=== PATIENT | female | born 1980 | race Caucasian/White ===

== ENCOUNTER 2016-06-10 15:02 | Emergency (ER) | payer BC ==
--- NOTE | 2016-06-10 15:46 | ED CLINICAL REPORT ---
Clinical Report - Physicians/Mid Levels [facility] [address] [place] [address] 06/10/2016 15:04 Patient: JUAN M PORTILLO Time Seen: 1510 Jun 10 2016. Arrived- By private vehicle. Historian- patient. HISTORY OF PRESENT ILLNESS Chief Complaint: Injury to the left index finger. The injury happened just prior to arrival. The patient sustained a laceration. Patient is experiencing mild pain. Patient denies injury to the neck. ( Patient here in the ER with right hand dominance, prior to arrival, sustaining injury to her left index finger, from a laceration.). REVIEW OF SYSTEMS The patient sustained a laceration. No tingling or numbness. All systems otherwise negative, except as recorded above. PAST HISTORY No history of heart disease. The patient's dominant hand is the right. Tetanus immunization status is unknown. SOCIAL HISTORY Never smoker. No alcohol use or drug use. ADDITIONAL NOTES The nursing notes have been reviewed. PHYSICAL EXAM Vital Signs: 06/10/2016 15:09 BP: 118/78. HR: 83. RR: 18. O2 saturation: 100%. Temp: 98.1 F. Pain level now: 6/10. Appearance: Alert. No acute distress. Head: Head atraumatic. Neck: Normal inspection. Neck supple. CVS: Normal heart rate and rhythm. Heart sounds normal. Respiratory: No respiratory distress. Breath sounds normal. Skin: Skin warm. Extremities: Tip of left index finger: laceration; partial thickness tip amputation present. SEE LACERATION PROCEDURE NOTE #1. No exposed bone or loss of the nail bed on the left index finger. (mild bleeding from). No wrist injury. Extremities otherwise negative. Neuro, Vascular and Tendons: Vascular status intact. Motor intact. LABS, X-RAYS, AND EKG Lt UE Digits X-ray: (IMPRESSION: 1. Normal osseous structures second digit left hand. ___ Electronically Final signed by:William Centeno MD 06/10/2016 3:53:36 PM). PROGRESS AND PROCEDURES Digital Nerve Block - Finger: Time: 1600. Time-out completed immediately before the procedure. Digital nerve block performed on the left index finger. Web space and dorsal approach utilized. Landmarks identified. Skin prepped. Total volume of 4 mL 0.5% Marcaine infiltrated via two punctures using a 30-gauge needle. No complications encountered. Excellent anesthesia achieved. Course of Care: Coagulation achieved with pressure dressing, no signs of open fracture. No nailbed involvement. Partial distal nail avulsion as part of the skin avulsion. No signs of foreign body or infectious process. Patient is stable. Physical exam findings are improved. Symptoms better. Patient/family counseled. Disposition: Discharged. Condition: good. CLINICAL IMPRESSION Single deep skin avulsion.Treatment not delayed. No infection present or foreign body present. INSTRUCTIONS (leave dressing in place for 24 hour then remove gently and apply new avoid water for 48 hours). Warnings: TETANUS: You were given a tetanus shot during your visit. Make a note for future reference. OTC Medications: Take OTC medications according to label instructions. Available over the counter. Acetaminophen (available over the counter): take according to label instructions. Motrin (available over the counter): take according to label instructions. Follow-up: Follow up with your doctor in three days. (Electronically signed by Sulma Nayak P.A.-C 06/10/2016 17:14)
--- NOTE | 2016-06-10 15:46 | ED NURSING NOTES ---
Clinical Report - Nurses [facility] [address] [place] [address] 06/10/2016 15:04 Patient: JUAN M PORTILLO TRIAGE Triage time 15:09. Acuity: LEVEL 4. Chief Complaint: INJURY TO LEFT HAND. INJURY TO THE LEFT INDEX FINGER. Alert. --15:13 Thais Rolle R.N. 15:09 06/10/16. BP: 118/78. HR: 83. RR: 18. O2 saturation: 100%. Temp: 98.1 F. Pain level now: 10/29. --15:13 Thais Rolle R.N. Weight: 61.2 kg stated. Height/Length: 64 inches Per Patient. BMI: 23.2. --15:09 Thais Rolle R.N. Medications None. --17:01 Thais Rolle R.N. Allergies No Known Drug Allergy. --17:01 Thais Rolle R.N. History Arrived by private vehicle. Historian: patient. Primary physician (Marcus). The patient sustained a laceration from a knife. ( while chopping to make saravanan and potato soup). PAST MEDICAL HX: Tetanus status: unknown. Denies current . ( hypotension). SOCIAL HX: Never smoker. No alcohol use or drug use. FALL RISK ASSESSMENT: Fall risk assessment completed. No fall risk identified. --15:13 Thais Rolle R.N. Interventions ID band on patient. To room. --15:13 Thais Rolle R.N. PHYSICAL ASSESSMENT 15:13 06/10/16. EXTREMITIES: Tip of left index finger: tip amputation. --15:13 Thais Rolle R.N. SKIN: Bleeding is present. --15:14 Thais Rolle R.N. NURSING PROGRESS NOTES 15:14 06/10/16. Patient identifiers checked. Call light placed in reach. Bed placed in lowest position. Patient ready for evaluation- chart flagged. --15:14 Thais Rolle R.N. 15:23 06/10/2016 TDAP IM 0.5 mL given. (Lot#: [id number], expiration date: 02/23/2018, Marine Firefighter: [employer]ofi pasteur). Given in the right deltoid. Confirmed 5 rights. Vaccine information statement provided to the patient. --15:23 Thais Rolle R.N. Applied sterile bulky and pressure dressing consisting of 4x4 gauze. Secured with tube gauze. --16:45 Hermilo Quinones 16:50. ( Pt had pressure dressing applied with gelfoam x 30 minutes, then unwrapped, then redressed without removing gelfoam, per PA request, to see if bleeding stopped, was oozing very slowly but had mostly stopped. No leak through after new dressing applied. Pt asked for gauze to take home for dressing changes, brewing technician gave her a ten pack of 4x4's, and 2 bacitracin ointment packets, prior to discharge.). --17:59 Thais Rolle R.N. DISPOSITION / DISCHARGE Departure time: 1656. Condition at departure: improved. No learning barriers present. Discharge instructions provided and reviewed with the patient. Reviewed wound care instructions. Patient verbalized understanding. Written instructions provided. The patient was discharged home. She left the Emergency Department ambulatory and via private vehicle. --18:00 Thais Rolle R.N. 16:57 06/10/16. BP: 124/76. HR: 74. RR: 18. O2 saturation: 100%. Pain level now: 0/10. --18:00 Thais Rolle R.N. Locked/Released at 06/10/2016 18:45 by Thais Rolle R.N.
--- NOTE | 2016-06-10 15:46 | ED NURSING NOTES ---
Clinical Report - Nurses [facility] [address] [place] [address] 06/10/2016 15:04 Patient: JUAN M PORTILLO TRIAGE Triage time 15:09. Acuity: LEVEL 4. Chief Complaint: INJURY TO LEFT HAND. INJURY TO THE LEFT INDEX FINGER. Alert. --15:13 Thais Rolle R.N. 15:09 06/10/16. BP: 118/78. HR: 83. RR: 18. O2 saturation: 100%. Temp: 98.1 F. Pain level now: 10/29. --15:13 Thais Rolle R.N. Weight: 61.2 kg stated. Height/Length: 64 inches Per Patient. BMI: 23.2. --15:09 Thais Rolle R.N. Medications None. --17:01 Thais Rolle R.N. Allergies No Known Drug Allergy. --17:01 Thais Rolle R.N. History Arrived by private vehicle. Historian: patient. Primary physician (Marcus). The patient sustained a laceration from a knife. ( while chopping to make saravanan and potato soup). PAST MEDICAL HX: Tetanus status: unknown. Denies current . ( hypotension). SOCIAL HX: Never smoker. No alcohol use or drug use. FALL RISK ASSESSMENT: Fall risk assessment completed. No fall risk identified. --15:13 Thais Rolle R.N. Interventions ID band on patient. To room. --15:13 Thais Rolle R.N. PHYSICAL ASSESSMENT 15:13 06/10/16. EXTREMITIES: Tip of left index finger: tip amputation. --15:13 Thais Rolle R.N. SKIN: Bleeding is present. --15:14 Thais Rolle R.N. NURSING PROGRESS NOTES 15:14 06/10/16. Patient identifiers checked. Call light placed in reach. Bed placed in lowest position. Patient ready for evaluation- chart flagged. --15:14 Thais Rolle R.N. 15:23 06/10/2016 TDAP IM 0.5 mL given. (Lot#: [id number], expiration date: 02/23/2018, Team Leader Surgery: sanofi pasteur). Given in the right deltoid. Confirmed 5 rights. Vaccine information statement provided to the patient. --15:23 Thais Rolle R.N. Applied sterile bulky and pressure dressing consisting of 4x4 gauze. Secured with tube gauze. --16:45 Hermilo Quinones 16:50. ( Pt had pressure dressing applied with gelfoam x 30 minutes, then unwrapped, then redressed without removing gelfoam, per PA request, to see if bleeding stopped, was oozing very slowly but had mostly stopped. No leak through after new dressing applied. Pt asked for gauze to take home for dressing changes, medical office technologist gave her a ten pack of 4x4's, and 2 bacitracin ointment packets, prior to discharge.). --17:59 Thais Rolle R.N. DISPOSITION / DISCHARGE Departure time: 1656. Condition at departure: improved. No learning barriers present. Discharge instructions provided and reviewed with the patient. Reviewed wound care instructions. Patient verbalized understanding. Written instructions provided. The patient was discharged home. She left the Emergency Department ambulatory and via private vehicle. --18:00 Thais Rolle R.N. 16:57 06/10/16. BP: 124/76. HR: 74. RR: 18. O2 saturation: 100%. Pain level now: 0/10. --18:00 Thais Rolle R.N. Locked/Released at 06/10/2016 18:45 by Thais Rolle R.N.
--- NOTE | 2016-06-10 15:47 | ED ORDER SUMMARY ---
..... Patient: JUAN M PORTILLO OrderSheet [facility] VisitID: [id number] [address] [place] [address] 35y, F Registration Date/Time: 06/10/2016 ORDER SHEET Weight: 61.2 kg (stated) Allergies: No Known Drug Allergy GENERAL ORDERS: Finger Left (2) Urgent (15:25 06/10/2016 Pricilla Flor) (Ack 15:30 JENNIFERarbayron) (18:07 LSullivan R.N.) MEDICATION ORDERS: Tdap IM 0.5 mL (NOW, per protocol) (15:16 06/10/2016 Pricilla Flor) (15:23 LSullivan R.N.) IV FLUIDS: ORDER SHEET NOTES: [Electronically signed by Sulma Nayak P.A.-C (17:14 06/10/2016)] [Electronically signed by Thais Rolle R.N. (18:45 06/10/2016)] [Electronically locked/signed by Thais Rolle R.N. (18:45 06/10/2016)]
--- NOTE | 2016-06-10 15:47 | ED ORDER SUMMARY ---
..... Patient: JUAN M PORTILLO OrderSheet [facility] VisitID: [id number] [address] [place] [address] 35y, F Registration Date/Time: 06/10/2016 ORDER SHEET Weight: 61.2 kg (stated) Allergies: No Known Drug Allergy GENERAL ORDERS: Finger Left (2) Urgent (15:25 06/10/2016 Pricilla Flor) (Ack 15:30 JENNIFERarbayron) (18:07 LSullivan R.N.) MEDICATION ORDERS: Tdap IM 0.5 mL (NOW, per protocol) (15:16 06/10/2016 Pricilla Flor) (15:23 LSullivan R.N.) IV FLUIDS: ORDER SHEET NOTES: [Electronically signed by Sulma Nayak P.A.-C (17:14 06/10/2016)] [Electronically signed by Thais Rolle R.N. (18:45 06/10/2016)] [Electronically locked/signed by Thais Rolle R.N. (18:45 06/10/2016)]
--- NOTE | 2016-06-10 15:50 | DIAGNOSTIC IMAGING REPORT ---
PROCEDURE: XR FINGER - LEFT INDICATION: TRAUMA/INJURY TECHNIQUE: Four views. COMPARISON: None. FINDINGS: Osseous structures and joint spaces are normal. No foreign bodies. Soft tissue removed. IMPRESSION: 1. Normal osseous structures second digit left hand.
--- NOTE | 2016-06-10 18:45 | ED MAR SUMMARY ---
..... Medication Administration Record [facility] [address] [place] [place] [address] Patient: JUAN M PORTILLO Visit ID: [id number] 35y, F Weight: 61.2 kg Height/Length: 64 in BMI: 23.2 ALLERGIES: No Known Drug Allergy Given 15:23 06/10/2016 Thais Rolle RRigoberto Medication Administered: TDAP [IM], Dose: 0.5 mL IM. Medication Ordered: Tdap IM 0.5 mL (NOW, per protocol).
--- NOTE | 2016-06-10 18:45 | ED MED RECONCILIATION SUMMARY ---
Patient: JUAN M PORTILLO Medication Reconciliation Report [facility] VisitID: [id number] [address] [place] [address] 35y, F Registration Date/Time: 06/10/2016 Weight: 61.2 kg Height/Length: 64 in. BMI: 23.2 ALLERGIES: No Known Drug Allergy The patient's Home Medications are listed below: NONE. The source(s) of the original Home Medication information: Not obtained. The following Medications were given to the patient in the Emergency Department: TDAP [IM] IM 0.5 mL, administered: 06/10/2016 3:23:00 PM The following Medications were prescribed to the patient: Take OTC medications according to label instructions. Available over the counter. -- Sulma Nayak, P.A.-C Acetaminophen (available over the counter): take according to label instructions. -- Sulma Nayak, P.A.-C Motrin (available over the counter): take according to label instructions. -- Sulma Nayak, P.A.-C
--- NOTE | 2016-06-10 18:45 | ED DISCHARGE INSTRUCTIONS ---
Patient: JUAN M PORTILLO General Instructions [facility] VisitID: [id number] [place] [address] 35y, F Registration Date/Time: 06/10/2016 Single deep skin avulsion.Treatment not delayed. No infection present or foreign body present. INSTRUCTIONS (leave dressing in place for 24 hour then remove gently and apply new avoid water for 48 hours). Warnings: TETANUS: You were given a tetanus shot during your visit. Make a note for future reference. OTC Medications: Take OTC medications according to label instructions. Available over the counter. Acetaminophen (available over the counter): take according to label instructions. Motrin (available over the counter): take according to label instructions. Follow-up: Follow up with your doctor in three days. ADDITIONAL INFORMATION Diphtheria Toxoid Adsorbed, Pertussis Vaccine, Acellular (Adsorbed), Tetanus Toxoid, Adsorbed Suspension for injection What is this medicine? DIPHTHERIA and TETANUS TOXOIDS; PERTUSSIS VACCINE (dif THEER ee uh and TET n us TOK soids; per TUS iss wingk SEEN) is used to prevent diphtheria, tetanus, and pertussis infections. How should I use this medicine? This vaccine is for injection into a muscle. It is given by a health certified social workers in health care. A copy of Vaccine Information Statements will be given before each vaccination. Read this sheet carefully each time. The sheet may change frequently. Talk to your specifications checker regarding the use of this vaccine in children. While the DTP vaccine may be given to children ages 6 weeks to 7 years and the Tdap vaccine may be given to children at least 10 years old, precautions do apply. What side effects may I notice from receiving this medicine? Side effects that you should report to your doctor or health certified social workers in health care as soon as possible: allergic reactions like skin rash, itching or hives, swelling of the face, lips, or tongue breathing problems fever of 103 degrees F or more flu-like symptoms inconsolable crying infection pain, tingling, numbness in the hands or feet seizures swelling of arm or leg that was injected unusually weak or tired Side effects that usually do not require immediate medical attention (report these side effects to your doctor or health certified social workers in health care if they continue or are bothersome): fussy, irritable loss of appetite fever of 102 degrees F or less pain, tenderness, redness, swelling, or a 'knot' at site where injected vomiting What may interact with this medicine? immune globulin medicines that suppress your immune function like adalimumab, anakinra, infliximab medicines to treat cancer medicines that treat or prevent blood clots like warfarin, enoxaparin, and dalteparin steroid medicines like prednisone or cortisone What if I miss a dose? It is important not to miss your dose. Call your doctor or health certified social workers in health care if you are unable to keep an appointment. Where should I keep my medicine? This drug is given in a hospital or clinic and will not be stored at home. What should I tell my health care provider before I take this medicine? They need to know if you have any of these conditions: blood disorders like hemophilia fever or infection immune system problems neurologic disease seizures an unusual or allergic reaction to vaccines, thimerosal, latex, other medicines, foods, dyes, or preservatives or trying to get breast-feeding What should I watch for while using this medicine? See your health care provider for all shots of this vaccine as directed. To have protection from infection, you must have 3 shots of this vaccine plus boosters as needed. Tell your doctor right away if you have any serious or unusual side effects after getting this vaccine. You have been given the following additional information: Diphtheria Toxoid Adsorbed, Pertussis Vaccine, Acellular (Adsorbed), Tetanus Toxoid, Adsorbed Suspension for injection (Electronically signed by Sulma Nayak P.A.-C 06/10/2016 17:14)
--- NOTE | 2016-06-10 18:45 | ED MED RECONCILIATION SUMMARY ---
Patient: JUAN M PORTILLO Medication Reconciliation Report [facility] VisitID: [id number] [address] [place] [address] 35y, F Registration Date/Time: 06/10/2016 Weight: 61.2 kg Height/Length: 64 in. BMI: 23.2 ALLERGIES: No Known Drug Allergy The patient's Home Medications are listed below: NONE. The source(s) of the original Home Medication information: Not obtained. The following Medications were given to the patient in the Emergency Department: TDAP [IM] IM 0.5 mL, administered: 06/10/2016 3:23:00 PM The following Medications were prescribed to the patient: Take OTC medications according to label instructions. Available over the counter. -- Sulma Nayak, P.A.-C Acetaminophen (available over the counter): take according to label instructions. -- Sulma Nayak, P.A.-C Motrin (available over the counter): take according to label instructions. -- Sulma Nayak, P.A.-C
--- NOTE | 2016-06-10 18:45 | ED DISCHARGE INSTRUCTIONS ---
Patient: JUAN M PORTILLO General Instructions [facility] VisitID: [id number] [place] [address] 35y, F Registration Date/Time: 06/10/2016 Single deep skin avulsion.Treatment not delayed. No infection present or foreign body present. INSTRUCTIONS (leave dressing in place for 24 hour then remove gently and apply new avoid water for 48 hours). Warnings: TETANUS: You were given a tetanus shot during your visit. Make a note for future reference. OTC Medications: Take OTC medications according to label instructions. Available over the counter. Acetaminophen (available over the counter): take according to label instructions. Motrin (available over the counter): take according to label instructions. Follow-up: Follow up with your doctor in three days. ADDITIONAL INFORMATION Diphtheria Toxoid Adsorbed, Pertussis Vaccine, Acellular (Adsorbed), Tetanus Toxoid, Adsorbed Suspension for injection What is this medicine? DIPHTHERIA and TETANUS TOXOIDS; PERTUSSIS VACCINE (dif THEER ee uh and TET n us TOK soids; per TUS iss wingk SEEN) is used to prevent diphtheria, tetanus, and pertussis infections. How should I use this medicine? This vaccine is for injection into a muscle. It is given by a health child care. A copy of Vaccine Information Statements will be given before each vaccination. Read this sheet carefully each time. The sheet may change frequently. Talk to your restaurant recruiter regarding the use of this vaccine in children. While the DTP vaccine may be given to children ages 6 weeks to 7 years and the Tdap vaccine may be given to children at least 10 years old, precautions do apply. What side effects may I notice from receiving this medicine? Side effects that you should report to your doctor or health child care as soon as possible: allergic reactions like skin rash, itching or hives, swelling of the face, lips, or tongue breathing problems fever of 103 degrees F or more flu-like symptoms inconsolable crying infection pain, tingling, numbness in the hands or feet seizures swelling of arm or leg that was injected unusually weak or tired Side effects that usually do not require immediate medical attention (report these side effects to your doctor or health child care if they continue or are bothersome): fussy, irritable loss of appetite fever of 102 degrees F or less pain, tenderness, redness, swelling, or a 'knot' at site where injected vomiting What may interact with this medicine? immune globulin medicines that suppress your immune function like adalimumab, anakinra, infliximab medicines to treat cancer medicines that treat or prevent blood clots like warfarin, enoxaparin, and dalteparin steroid medicines like prednisone or cortisone What if I miss a dose? It is important not to miss your dose. Call your doctor or health child care if you are unable to keep an appointment. Where should I keep my medicine? This drug is given in a hospital or clinic and will not be stored at home. What should I tell my health care provider before I take this medicine? They need to know if you have any of these conditions: blood disorders like hemophilia fever or infection immune system problems neurologic disease seizures an unusual or allergic reaction to vaccines, thimerosal, latex, other medicines, foods, dyes, or preservatives or trying to get breast-feeding What should I watch for while using this medicine? See your health care provider for all shots of this vaccine as directed. To have protection from infection, you must have 3 shots of this vaccine plus boosters as needed. Tell your doctor right away if you have any serious or unusual side effects after getting this vaccine. You have been given the following additional information: Diphtheria Toxoid Adsorbed, Pertussis Vaccine, Acellular (Adsorbed), Tetanus Toxoid, Adsorbed Suspension for injection (Electronically signed by Sulma Nayak P.A.-C 06/10/2016 17:14)
--- NOTE | 2016-06-10 18:45 | ED MAR SUMMARY ---
..... Medication Administration Record [facility] [address] [place] [address] Patient: JUAN M PORTILLO Visit ID: [id number] 35y, F Weight: 61.2 kg Height/Length: 64 in BMI: 23.2 ALLERGIES: No Known Drug Allergy Given 15:23 06/10/2016 Thais Rolle RRigoberto Medication Administered: TDAP [IM], Dose: 0.5 mL IM. Medication Ordered: Tdap IM 0.5 mL (NOW, per protocol).
== END 2016-06-10 16:57 | disposition home or self-care (01) ==
LOC: ED SRH 15:02
DX: S61.211A Laceration without foreign body of left index finger without damage to nail, initial encounter (principal); Y93.89 Activity, other specified; Y99.9 Unspecified external cause status; Y92.9 Unspecified place or not applicable; W26.0XXA Contact with knife, initial encounter